=== PATIENT | male | born 1995 | race Caucasian/White ===

== ENCOUNTER 2016-05-03 15:50 | Emergency (ER) | payer OTHER ==
[~2016-05-03] VITALS: Ht 182.9 cm; Wt 83.2 kg
[2016-05-03 15:55] VITALS: TEMP 37; Ht 182.9 cm; Wt 83.2 kg
--- NOTE | 2016-05-03 17:00 | DIAGNOSTIC IMAGING REPORT ---
RIGHT TIBIA/FIBULA 2 VIEWS ROUTINE CLINICAL HISTORY: Right lower leg injury Right pain COMPARISON: None. DISCUSSION: The bones and joint spaces appear intact. There is no evidence of fracture, dislocation or bony disease. There is no evidence for soft tissue swelling. IMPRESSION: Negative study. Electronically signed by: Leo Murphy M.D. 05/03/2016 4:58 PM Dictated Date/Time: 05/03/2016 4:58 PM
[2016-05-03 18:03] VITALS: BP 115/65; PULSE 69; O2SAT 98
--- NOTE | 2016-05-03 19:09 | EMERGENCY ROOM VISIT NOTE ---
History First contact with patient: 16:06 Chief Complaint: LEG PAIN,LEG INJURY Stated Complaint: BRUISE ON LEG - SPREAD TO ANKLE History of Present Illness The patient is a 21 year old male who presents to the Emergency Room with complaints of right leg pain after striking it about a week ago. The patient is unsure exact mechanism of injury. The patient has bruising across the mid tibia down into his right foot. He has been able to ambulate. He is not taking medication dywi-owe-ghtydac for his discomfort which she currently rates a 6/10. Pressing on the area and walking seems to worsen his discomfort. Review of Systems More than 10 systems were reviewed and otherwise negative with the exception of history of present illness. Past Medical/Surgical History No chronic medical disease Family History No pertinent family history Social History Smoking Status: Never Smoker Housing Status: lives with family Current/Historical Medications No Active Prescriptions or Reported Meds Allergies Coded Allergies: No Known Allergies (Unverified , 05/03/16) Physical Exam Vital Signs Date Time Temp Pulse Resp B/P Pulse Ox O2 Delivery O2 Flow Rate FiO2 05/03/16 18:03 69 16 115/65 98 Room Air 05/03/16 15:55 37.0 73 18 114/70 96 Room Air Pain Rating (0-10): 6.0 Physical Exam VITALS: Vitals are noted on the nurse's note and reviewed by myself. Vital signs stable. GENERAL: Well-developed, well-nourished, white male, who is in no acute distress and resting comfortably. Patient is cooperative with the examination. HEAD: Normocephalic atraumatic. HEART: Regular rate and rhythm without murmurs gallops or rubs. LUNGS: Clear to auscultation bilaterally without wheezes, rales or rhonchi. No retractions or accessory muscle use. MUSCULOSKELETAL: Edema and ecchymosis appreciated over the mid shaft of the mid right tibia extending down to the right ankle. Neurovascular status is intact distally. No significant laceration, cellulitis, or abrasion. Medical Decision & Procedures ER Provider Diagnostic Interpretation: RIGHT TIBIA/FIBULA 2 VIEWS ROUTINE CLINICAL HISTORY: Right lower leg injury Right pain COMPARISON: None. DISCUSSION: The bones and joint spaces appear intact. There is no evidence of fracture, dislocation or bony disease. There is no evidence for soft tissue swelling. IMPRESSION: Negative study. ED Course Physical exam and history were performed. Nursing notes and EMR were reviewed. Patient appears to have injured himself last week, but now has bruising and ecchymosis throughout the right lower leg. X-ray was obtained and does not show evidence of fracture. Overall suspect this is part of the natural healing process as the patient has associated bruising. The patient was placed in an Gene wrap and educated on compression and elevation. He is to follow with [facility] this week with any ongoing or persistent symptoms. He was otherwise invited back to the ER with any new, worsening, or concerning symptoms. The chart was completed utilizing [employer] Speech Voice Recognition Software. Grammatical errors, random word insertions, pronoun errors, and incomplete sentences are an occasional consequence of this system due to software limitations, ambient noise, and hardware issues. Any formal questions or concerns about the content, text, or information contained within the body of this dictation should be directly addressed to the provider for clarification. . Medical Decision Differential diagnoses includes, but is not limited to: Sprain, strain, fracture , dislocation, subluxation, contusion, DVT/PE, hematoma, and others Impression Primary Impression: Injury of right leg Departure Information Dispostion Home / Self-Care Condition GOOD Prescriptions No Active Prescriptions or Reported Meds Forms HOME CARE DOCUMENTATION FORM, IMPORTANT VISIT INFORMATION Patient Instructions My [facility] Additional Instructions You were seen and evaluated today on an emergency basis only. This is not a substitute for, or an effort to provide, complete comprehensive medical care. It is not possible to recognize and treat all injuries or illnesses in a single emergency department visit. For this reason it is recommended that you followup with [facility] or your primary care physician with any ongoing or persistent symptoms. For baseline pain relief you may alternate ibuprofen and acetaminophen every 4 hours for pain control. Take 600 mg ibuprofen (Advil) and then 4 hours later take 1000 mg acetaminophen (Tylenol). Do not take more than 3000 mg acetaminophen in a single day. You are welcome to return to the emergency department anytime with new, worsening, or concerning symptoms.
== END 2016-05-03 18:04 | disposition home or self-care (01) ==
LOC: C.EDB 15:54 → C.EDD 18:04
DX: S89.91XA Unspecified injury of right lower leg, initial encounter (principal); W22.8XXA Striking against or struck by other objects, initial encounter